=== PATIENT | male | born 1950 | race Caucasian/White ===

== ENCOUNTER 2017-10-23 10:20 | Day surgery (SDC) | payer MEDICARE, OTHER ==
[~2017-10-23] VITALS: Ht 195.6 cm; Wt 107.3 kg
[2017-10-23] MEDS ORDERED: HYDR25TA6 PO (10:47)
[2017-10-23] MEDS ORDERED: LOSA25TA5 PO (10:47)
[2017-10-23] MEDS ORDERED: omeprozole PO (10:47)
[2017-10-23] MEDS ORDERED: SIMV40TA3 PO (10:47)
[2017-10-23] MEDS ORDERED: AMLO10TA2 PO (10:49)
[2017-10-23] MEDS ORDERED: [UNRECOGNIZED DRUG - OTHER] TP (10:49)
[2017-10-23] MEDS ORDERED: [UNRECOGNIZED DRUG - OTHER] PO (10:49)
[2017-10-23] MEDS ORDERED: LACTATED RINGERS 1,000 ML IV SCH (10:53)
[2017-10-23] MEDS ORDERED: PLEASE ENTER HEIGHT AND WEIGHT MC SCH (11:00)
[2017-10-23 11:05] VITALS: BP 142/83
[2017-10-23] MEDS ORDERED: PROPOFOL 50 ML ONE (12:15)
[2017-10-23] MEDS ORDERED: MIDAZOLAM 1 MG/ML, 2ML ONE (12:16)
[2017-10-23 12:17] LABS: ANION GAP 8 mmol/L (5-15); CALCIUM 8.6 mg/dL (8.5-10.1); CHLORIDE 109 mmol/L (98-107); CREATININE 0.81 mg/dL (0.7-1.3)
[2017-10-23] MEDS ORDERED: ACETAMINOPHEN 325 MG TABLET PO PRN (13:00)
[2017-10-23] MEDS ORDERED: hydrALAzine 20 MG/ML, 1ML IV PRN (13:00)
[2017-10-23] MEDS ORDERED: EPHEDRINE 50 MG/ML, 1ML IVPush PRN (13:00)
[2017-10-23] MEDS ORDERED: PROMETHAZINE 25 MG/ML, 1ML IV PRN (13:00)
[2017-10-23] MEDS ORDERED: OXYcodone 5 MG/5 ML ORAL.SOL UDC PO PRN (13:00)
[2017-10-23] MEDS ORDERED: LABETALOL 5MG/ML, 20ML IV PRN (13:00)
[2017-10-23] MEDS ORDERED: FENTANYL PF 100 MCG/2ML IV PRN (13:00)
[2017-10-23] MEDS ORDERED: MIDAZOLAM 1 MG/ML, 2ML IV PRN (13:00)
[2017-10-23] MEDS ORDERED: HYDROcodone/APAP 7.5-325MG/15ML UDC PO PRN (13:00)
[2017-10-23] MEDS ORDERED: MEPERIDINE/PF 25MG/0.5ML IVPush PRN (13:00)
[2017-10-23] MEDS ORDERED: ALBUTEROL SULFATE 2.5 MG/3 ML NPPB PRN (13:00)
[2017-10-23] MEDS ORDERED: ONDANSETRON ODT 8 MG PO PRN (13:00)
[2017-10-23] MEDS ORDERED: KETOROLAC 30 MG/1 ML ONE (15:54)
== END 2017-10-23 15:05 ==
LOC: OUT 10:20
PROVIDERS: ATTEND Internal Medicine Geriatric Medicine
DX: K22.710 Barrett's esophagus with low grade dysplasia (principal); K21.9 Gastro-esophageal reflux disease without esophagitis; G47.33 Obstructive sleep apnea (adult) (pediatric); I10 Essential (primary) hypertension
CPT/HCPCS: 36415; 43270; 80048; 93005; J1885; J2250; J2704; J7120

== ENCOUNTER 2018-04-23 07:58 | Day surgery (SDC) | payer MEDICARE, OTHER ==
[2018-04-22 12:18] LABS: ALANINE AMINOTRANSFERASE 66 U/L (12-78); ALBUMIN 4.1 g/dL (3.4-5.0); ANION GAP 8 mmol/L (5-15); CALCIUM 8.9 mg/dL (8.5-10.1); CHLORIDE 108 mmol/L (98-107); CREATININE 0.81 mg/dL (0.7-1.3)
[2018-04-22 12:20] LABS: ALKALINE PHOSPHATASE 51 U/L (45-117); BILIRUBIN,TOTAL 0.8 mg/dL (0.2-1.0); TOTAL PROTEIN 7.3 g/dL (6.4-8.2)
[~2018-04-23] VITALS: Ht 193 cm; Wt 109.9 kg
[~2018-04-23 07:58] MED LIST: AMLO10TA6 PO; CHOL100012 PO; DOXA4TAB3 PO; HYDR25TA6 PO; LOSA100T7 PO; LOSA25TA6 PO; OMEP40CA6 PO; SIMV40TA3 PO; VIT1TABL32 PO; [UNRECOGNIZED DRUG - OTHER] PO; [UNRECOGNIZED DRUG - OTHER] TP; omeprozole PO
[2018-04-23 08:37] VITALS: BP 152/87
[2018-04-23] MEDS ORDERED: LACTATED RINGERS 1,000 ML IV SCH (08:51)
[2018-04-23] MEDS ORDERED: hydrALAzine 20 MG/ML, 1ML IV PRN (09:00)
[2018-04-23] MEDS ORDERED: ACETAMINOPHEN 325 MG TABLET PO PRN (09:00)
[2018-04-23] MEDS ORDERED: MEPERIDINE/PF 25MG/0.5ML IVPush PRN (09:00)
[2018-04-23] MEDS ORDERED: ONDANSETRON 2MG/ML, 2ML IV PRN (09:00)
[2018-04-23] MEDS ORDERED: LABETALOL 5MG/ML, 20ML IV PRN (09:00)
[2018-04-23] MEDS ORDERED: FENTANYL PF 100 MCG/2ML ONE (09:25)
[2018-04-23] MEDS ORDERED: PROPOFOL 10 MG/ML, 20ML ONE (09:25)
== END 2018-04-23 11:30 | disposition home or self-care (01) ==
LOC: OUT 07:58
PROVIDERS: ATTEND Internal Medicine Geriatric Medicine
DX: K22.70 Barrett's esophagus without dysplasia (principal); K21.9 Gastro-esophageal reflux disease without esophagitis; J45.909 Unspecified asthma, uncomplicated; E78.5 Hyperlipidemia, unspecified; G47.33 Obstructive sleep apnea (adult) (pediatric); J44.9 Chronic obstructive pulmonary disease, unspecified
CPT/HCPCS: 36415; 43270; 80053; 93005; J2704; J3010; J7120

== ENCOUNTER 2018-06-11 09:04 | Day surgery (SDC) | payer MEDICARE, OTHER ==
[~2018-06-11] VITALS: Ht 193 cm; Wt 109.8 kg
[~2018-06-11 09:04] MED LIST changes: +LOSA25TA25 PO; -LOSA25TA6 PO
[2018-06-11] MEDS ORDERED: LACTATED RINGERS 1,000 ML IV SCH (09:25)
[2018-06-11 09:32] VITALS: BP 129/83
[2018-06-11] MEDS ORDERED: FENTANYL PF 100 MCG/2ML ONE (11:58)
[2018-06-11] MEDS ORDERED: MIDAZOLAM 1 MG/ML, 2ML ONE (11:58)
[2018-06-11] MEDS ORDERED: PROPOFOL 50 ML ONE (11:59)
[2018-06-11] MEDS ORDERED: HALOPERIDOL 5 MG/ML IV PRN (13:00)
[2018-06-11] MEDS ORDERED: OXYcodone 5 MG/5 ML ORAL.SOL UDC PO PRN (13:00)
[2018-06-11] MEDS ORDERED: ACETAMINOPHEN 325 MG TABLET PO PRN (13:00)
[2018-06-11] MEDS ORDERED: hydrALAzine 20 MG/ML, 1ML IV PRN (13:00)
[2018-06-11] MEDS ORDERED: FENTANYL PF 100 MCG/2ML IV PRN (13:00)
[2018-06-11] MEDS ORDERED: PROMETHAZINE 25 MG/ML, 1ML IV PRN (13:00)
[2018-06-11] MEDS ORDERED: HYDROmorphone 2 MG/ML, 1ML IVPush PRN (13:00)
[2018-06-11] MEDS ORDERED: MEPERIDINE/PF 25MG/0.5ML IVPush PRN (13:00)
== END 2018-06-11 14:25 | disposition home or self-care (01) ==
LOC: OUT 09:04
PROVIDERS: ATTEND Internal Medicine Geriatric Medicine
DX: K22.710 Barrett's esophagus with low grade dysplasia (principal); K21.9 Gastro-esophageal reflux disease without esophagitis; I10 Essential (primary) hypertension; G47.33 Obstructive sleep apnea (adult) (pediatric)
CPT/HCPCS: 43270; J2250; J2704; J3010; J7120